=== PATIENT | male | born 1990 | race Caucasian/White ===

== ENCOUNTER 2016-06-03 18:37 | Emergency (ER) | payer MEDICARE | END 2016-06-03 21:40 | disposition home or self-care (01) | LOC: ER1 18:37 | DX: S52.501A Unspecified fracture of the lower end of right radius, initial encounter for closed fracture (principal); Z79.899 Other long term (current) drug therapy; F17.290 Nicotine dependence, other tobacco product, uncomplicated; V49.9XXA Car occupant (driver) (passenger) injured in unspecified traffic accident, initial encounter | CPT/HCPCS: 70450; 73000; 73030; 73080; 73090; 73110; 99284 ==

== ENCOUNTER 2020-10-31 14:06 | Emergency (ER) | payer OTHER ==
[~2020-10-31 14:06] MED LIST: BACTROBAN OINT22 GM EXT; IBUPROFEN600 MG PO
== END 2020-10-31 16:37 | disposition home or self-care (01) ==
LOC: ER1 14:06
DX: M25.561 Pain in right knee (principal); M54.9 Dorsalgia, unspecified; F17.290 Nicotine dependence, other tobacco product, uncomplicated; V49.9XXA Car occupant (driver) (passenger) injured in unspecified traffic accident, initial encounter
CPT/HCPCS: 72072; 73564; 99284

== ENCOUNTER 2021-05-20 16:38 | Emergency (ER) | payer OTHER ==
[2021-05-20] MEDS ORDERED: IBUPROFEN600 MG PO (18:51)
[2021-05-20] MEDS ORDERED: BENZONATATE100 MG PO (18:51)
== END 2021-05-20 19:00 | disposition home or self-care (01) ==
LOC: ER1 16:38
DX: J06.9 Acute upper respiratory infection, unspecified (principal); Z20.822 Contact with and (suspected) exposure to COVID-19
CPT/HCPCS: 0240U; 71045; 87081; 87880; 99283